=== PATIENT | male | born 1955 | race Caucasian/White ===

== ENCOUNTER 2019-06-05 08:43 | Day surgery (SDC) | payer BC ==
[~2019-06-05] VITALS: Ht 172.7 cm; Wt 84.2 kg
[~2019-06-05 08:43] MED LIST: AMLO5 PO; Flurbiprofen100 MG PO; LEVSOD137 PO; Lovastatin20 MG PO; Omeprazole20 M1
== END 2019-06-05 10:55 | disposition home or self-care (01) ==
LOC: ORSCSDS 08:43
PROVIDERS: Internal Medicine Gastroenterology
PROC: 0DBN8ZX Excision of Sigmoid Colon, Via Natural or Artificial Opening Endoscopic, Diagnostic (ICD-10-PCS; principal; 2019-06-05 10:00)
DX: Z12.11 Encounter for screening for malignant neoplasm of colon (principal); Z80.0 Family history of malignant neoplasm of digestive organs; Z86.010 Personal history of colon polyps; D12.5 Benign neoplasm of sigmoid colon; K57.30 Diverticulosis of large intestine without perforation or abscess without bleeding; Z87.891 Personal history of nicotine dependence; Z79.899 Other long term (current) drug therapy
CPT/HCPCS: 88305; J2704; J7120

== ENCOUNTER 2021-12-07 11:05 | Emergency (ER) | payer BC ==
[~2021-12-07] VITALS: Ht 172.7 cm; Wt 81.7 kg
== END 2021-12-07 13:28 | disposition home or self-care (01) ==
LOC: ER 11:05
DX: L50.9 Urticaria, unspecified (principal); Z79.899 Other long term (current) drug therapy; Z88.8 Allergy status to other drugs, medicaments and biological substances; Z87.891 Personal history of nicotine dependence
CPT/HCPCS: A9270; J3301

== ENCOUNTER → 2022-06-22 | Outpatient (CLI) | payer BC ==
[2022-06-23 11:19] LABS: Adenovirus F 40/41 Not Detected (NOT DETECT); Astrovirus Not Detected (NOT DETECT); Campylobacter Sp Detected (NOT DETECT); Cryptosporidium Not Detected (NOT DETECT); Cyclospora Cayetanensis Not Detected (NOT DETECT); E. Coli O157 Not Detected (NOT DETECT); Entamoeba Histolytica Not Detected (NOT DETECT); Enteroaggregative E. coli-EAEC Not Detected (NOT DETECT); Enteropathogenic E. coli-EPEC Not Detected (NOT DETECT); Enterotoxigenic E. coli-ETEC Not Detected (NOT DETECT); Giardia Lamblia Not Detected (NOT DETECT); Norovirus GI/GII Not Detected (NOT DETECT); Plesiomonas Shigelloides Not Detected (NOT DETECT); Rotavirus A Not Detected (NOT DETECT); Salmonella Sp Not Detected (NOT DETECT); Sapovirus Not Detected (NOT DETECT); Shiga Toxin-prod E. coli-STEC Not Detected (NOT DETECT); Shigella/Enteroin E. coli-EIEC Not Detected (NOT DETECT); Vibrio Cholerae Not Detected (NOT DETECT); Vibrio Sp Not Detected (NOT DETECT); Yersinia Enterocolitica Not Detected (NOT DETECT)
== END | disposition home or self-care (01) ==
LOC: LAB SHORT 04:00 → LAB FUT 05-11 08:00
PROVIDERS: Internal Medicine Gastroenterology
DX: R19.7 Diarrhea, unspecified (principal)
CPT/HCPCS: 87507

== ENCOUNTER 2024-10-20 06:34 | Emergency (ER) | payer OTHER ==
[~2024-10-20] VITALS: Ht 172.7 cm; Wt 82.0 kg
[2024-10-20 07:04] VITALS: BP 133/86
[2024-10-20] MEDS ORDERED: PredniSONE 20 MG Tab PO ONE (07:10)
[2024-10-20] MEDS ORDERED: DiphenhydrAMINE HCl 50 MG/ML 1ML Vial IM ONE (07:10)
[2024-10-20] MEDS ORDERED: EUTHYROX125 MCG PO (07:12)
[2024-10-20] MEDS ORDERED: SULFAMETHOXAZO1 EAC1 (07:12)
[2024-10-20] MEDS ORDERED: AMOX-CLAV 875-1 EAC5 (07:12)
[2024-10-20] MEDS ORDERED: PRAV20 PO (07:12)
[2024-10-20] MEDS ORDERED: Clindamycin HC150 MG PO (08:04)
[2024-10-20] MEDS ORDERED: BENADRYL25 MG PO (08:04)
[2024-10-20] MEDS ORDERED: PRED20 PO (08:04)
== END 2024-10-20 08:12 | disposition home or self-care (01) ==
LOC: ER 06:34
DX: L50.9 Urticaria, unspecified (principal); L03.116 Cellulitis of left lower limb; S80.12XA Contusion of left lower leg, initial encounter; X58.XXXA Exposure to other specified factors, initial encounter; I10 Essential (primary) hypertension; E78.5 Hyperlipidemia, unspecified; Z87.891 Personal history of nicotine dependence; Z79.899 Other long term (current) drug therapy; Z88.8 Allergy status to other drugs, medicaments and biological substances
CPT/HCPCS: 10060; 96374-59; 99283-25; J1200; J7512

== ENCOUNTER 2024-10-22 06:31 | Emergency (ER) | payer OTHER ==
[~2024-10-22] VITALS: Ht 172.7 cm; Wt 81.7 kg
[~2024-10-22 06:31] MED LIST changes: +AMOX-CLAV 875-1 EAC5; +BENADRYL25 MG PO; +Clindamycin HC150 MG PO; +EUTHYROX125 MCG PO; +PRAV20 PO; +PRED20 PO; +SULFAMETHOXAZO1 EAC1
[2024-10-22] MEDS ORDERED: DEPO-TESTO200 MG/18 IM (07:19)
[2024-10-22] MEDS ORDERED: DIAZEPAM5 M2 PO (07:19)
[2024-10-22] MEDS ORDERED: MethylPREDNISolone Sod Succ 125 MG Vial IV ONE (08:45)
[2024-10-22] MEDS ORDERED: DiphenhydrAMINE HCl 50 MG/ML 1ML Vial IV ONE (08:45)
[2024-10-22] MEDS ORDERED: Famotidine 10 MG/ML 2ML Vial IV ONE (08:45)
[2024-10-22] MEDS ORDERED: HyDROXyzine HCl 25 MG Tab PO ONE (09:50)
[2024-10-22 10:06] VITALS: BP 122/81
[2024-10-22] MEDS ORDERED: HYDHCL25 PO (11:38)
== END 2024-10-22 12:09 | disposition home or self-care (01) ==
LOC: ER 06:31
DX: L50.9 Urticaria, unspecified (principal); L03.116 Cellulitis of left lower limb; E07.9 Disorder of thyroid, unspecified; I10 Essential (primary) hypertension; E78.5 Hyperlipidemia, unspecified; Z87.891 Personal history of nicotine dependence; Z88.8 Allergy status to other drugs, medicaments and biological substances; Z79.890 Hormone replacement therapy; Z79.52 Long term (current) use of systemic steroids; Z79.899 Other long term (current) drug therapy; Z59.89 Other problems related to housing and economic circumstances
CPT/HCPCS: 96374; 96375; 99282-25; A9270; J1200; J2919

== ENCOUNTER → 2024-12-15 | Outpatient (CLI) | payer OTHER ==
[~2024-12-15] MED LIST changes: +DEPO-TESTO200 MG/18 IM; +DIAZEPAM5 M2 PO; +HYDHCL25 PO
[2024-12-15 16:10] LABS: Campylobacter Sp Not Detected (NOT DETECT); E. Coli O157 Not Detected (NOT DETECT); Enteroaggregative E. coli-EAEC Not Detected (NOT DETECT); Enteropathogenic E. coli-EPEC Not Detected (NOT DETECT); Enterotoxigenic E. coli-ETEC Not Detected (NOT DETECT); Salmonella Sp Not Detected (NOT DETECT); Shiga Toxin-prod E. coli-STEC Not Detected (NOT DETECT); Shigella/Enteroin E. coli-EIEC Not Detected (NOT DETECT); Vibrio Sp Not Detected (NOT DETECT)
== END ==
LOC: LAB SHORT 12:40 → LAB 12:40
PROVIDERS: Physician Assistant
DX: R19.7 Diarrhea, unspecified (principal)
CPT/HCPCS: 87324; 87507

== ENCOUNTER → 2025-01-10 | Outpatient (CLI) | payer OTHER ==
[2025-01-10 14:01] LABS: Campylobacter Sp Not Detected (NOT DETECT); E. Coli O157 Not Detected (NOT DETECT); Enteroaggregative E. coli-EAEC Not Detected (NOT DETECT); Enteropathogenic E. coli-EPEC Not Detected (NOT DETECT); Enterotoxigenic E. coli-ETEC Not Detected (NOT DETECT); Salmonella Sp Not Detected (NOT DETECT); Shiga Toxin-prod E. coli-STEC Not Detected (NOT DETECT); Shigella/Enteroin E. coli-EIEC Not Detected (NOT DETECT); Vibrio Sp Not Detected (NOT DETECT)
== END ==
LOC: LAB SHORT 09:15 → LAB 09:15
PROVIDERS: Physician Assistant Medical
DX: R19.7 Diarrhea, unspecified (principal)
CPT/HCPCS: 87324; 87507